=== PATIENT | male | born 1970 | race Caucasian/White ===

== ENCOUNTER → 2016-06-10 | Outpatient (CLI) | payer MEDICARE ==
[~2016-06-10] MED LIST: ZESTRIL5 MG PO
== END ==
LOC: LAB 14:08
DX: I50.22 Chronic systolic (congestive) heart failure (principal); I42.0 Dilated cardiomyopathy; I47.2 Ventricular tachycardia; I48.0 Paroxysmal atrial fibrillation; R00.0 Tachycardia, unspecified; Z79.899 Other long term (current) drug therapy
CPT/HCPCS: 36415; 80076; 84439; 84443; 84481

== ENCOUNTER → 2016-06-28 | Outpatient (CLI) | payer MEDICARE | LOC: HEART 5 09:11 | DX: I47.2 Ventricular tachycardia (principal); Z79.899 Other long term (current) drug therapy; F17.210 Nicotine dependence, cigarettes, uncomplicated; R94.2 Abnormal results of pulmonary function studies | CPT/HCPCS: 94060; 94729 ==

== ENCOUNTER 2020-12-11 05:06 | Inpatient (IN) | payer OTHER ==
[~2020-12-11] VITALS: Ht 190.5 cm; Wt 104.3 kg
[~2020-12-11 05:06] MED LIST changes: +LOPRESSOR50 MG PO
[2020-12-11 05:34] LABS: HEMOGLOBIN 14.1 gm/dl (14.0-17.5); RED BLOOD COUNT 5.02 M/UL (4.20-5.50); WHITE BLOOD COUNT 6.1 K/UL (4.5-11.0)
[2020-12-11 06:38] LABS: BUN/CREATININE RATIO 57 (0-10)
[2020-12-11] MEDS ORDERED: ENTRESTO 24 MG1 EACH PO (10:02)
[2020-12-11] MEDS ORDERED: LOPRESSOR 50 MG50 MG PO (10:02)
[2020-12-11] MEDS ORDERED: LASIX40 MG PO (10:02)
[2020-12-11] MEDS ORDERED: WARFARIN SODIUM4 MG PO ×2 (10:03→11:48)
[2020-12-12 09:50] LABS: RED BLOOD COUNT 4.2 M/UL (4.20-5.50); WHITE BLOOD COUNT 2.8 K/UL (4.5-11.0)
[2020-12-12 10:14] LABS: BUN/CREATININE RATIO 62 (0-10)
--- NOTE | 2020-12-12 14:09 | NUR ---
1410: PATIENT PREVIOUSLY PLACED ON HIGH-FLOW NC AT 15 LPM. UNABLE TO MAINTAIN SPO2 83 - 85%. RESPIRATORY TO PLACE ON AIRVO AND TITRATE TO MAINTAIN SPO2 >90%. DR OLIVEIRA NOTIFIED OF CONSULT WITH REQUEST TO SEE PATIENT PATIENT SOON POSSIBLE.
[2020-12-13 07:11] LABS: HEMOGLOBIN 12.5 gm/dl (14.0-17.5); RED BLOOD COUNT 4.42 M/UL (4.20-5.50)
[2020-12-13 07:14] LABS: WHITE BLOOD COUNT 5.5 K/UL (4.5-11.0)
[2020-12-13 07:39] LABS: BUN/CREATININE RATIO 39 (0-10)
[2020-12-14 07:04] LABS: HEMOGLOBIN 12.2 gm/dl (14.0-17.5); RED BLOOD COUNT 4.31 M/UL (4.20-5.50)
[2020-12-14 07:07] LABS: WHITE BLOOD COUNT 3.8 K/UL (4.5-11.0)
[2020-12-14 07:50] LABS: BUN/CREATININE RATIO 39 (0-10)
[2020-12-15 09:51] LABS: BUN/CREATININE RATIO 41 (0-10)
[2020-12-15 10:08] LABS: HEMOGLOBIN 12.6 gm/dl (14.0-17.5); RED BLOOD COUNT 4.48 M/UL (4.20-5.50)
[2020-12-15 10:09] LABS: WHITE BLOOD COUNT 2.7 K/UL (4.5-11.0)
[2020-12-16 07:12] LABS: HEMOGLOBIN 13.4 gm/dl (14.0-17.5); RED BLOOD COUNT 4.79 M/UL (4.20-5.50)
[2020-12-16 07:22] LABS: WHITE BLOOD COUNT 4.3 K/UL (4.5-11.0)
[2020-12-16 07:43] LABS: BUN/CREATININE RATIO 48 (0-10)
[2020-12-17] MEDS ORDERED: MIRALAX17 GM PO (10:42)
[2020-12-17] MEDS ORDERED: DECADRON6 MG PO (10:42)
[2020-12-17] MEDS ORDERED: SENOKOT-S TABL1 EACH PO (10:42)
[2020-12-17] MEDS ORDERED: COMBIVENT RESPIM4 GM INH (10:42)
[2020-12-17] MEDS ORDERED: AUGMENTIN 875-1 EACH PO (10:42)
--- NOTE | 2020-12-17 12:13 | NUR ---
PTS ROOM AIR OXYGEN SATURATION IS 88 PERCENT
== END 2020-12-17 15:45 | disposition home health service (06) | DRG 871 ==
LOC: ER1 05:06 → M/S 09:51 → CDU 09:51 → M/S 22:30
PROVIDERS: Student in an Organized Health Care Education/Training Program; ADMIT Internal Medicine
PROC: XW033E5 Introduction of Remdesivir Anti-infective into Peripheral Vein, Percutaneous Approach, New Technology Group 5 (ICD-10-PCS; principal; 2020-12-11)
PROC: 3E0333Z Introduction of Anti-inflammatory into Peripheral Vein, Percutaneous Approach (ICD-10-PCS; 2020-12-11)
PROC: 8E0ZXY6 Isolation (ICD-10-PCS; 2020-12-11)
DX: A41.89 Other specified sepsis (principal); U07.1 COVID-19; J12.82 Pneumonia due to coronavirus disease 2019; J96.01 Acute respiratory failure with hypoxia; R65.21 Severe sepsis with septic shock; J96.22 Acute and chronic respiratory failure with hypercapnia; G82.20 Paraplegia, unspecified; I50.32 Chronic diastolic (congestive) heart failure; I42.9 Cardiomyopathy, unspecified; K59.00 Constipation, unspecified; I45.10 Unspecified right bundle-branch block; G71.00 Muscular dystrophy, unspecified; I48.0 Paroxysmal atrial fibrillation; K44.9 Diaphragmatic hernia without obstruction or gangrene; E87.6 Hypokalemia; Z79.01 Long term (current) use of anticoagulants; Z86.718 Personal history of other venous thrombosis and embolism; Z86.711 Personal history of pulmonary embolism; Z95.810 Presence of automatic (implantable) cardiac defibrillator; Z99.3 Dependence on wheelchair; Z95.0 Presence of cardiac pacemaker; Z74.01 Bed confinement status; Z82.3 Family history of stroke; Z90.49 Acquired absence of other specified parts of digestive tract; Z79.82 Long term (current) use of aspirin
CPT/HCPCS: 36415; 36600; 71045; 80053; 82550; 82553; 82803; 82962; 83605; 83735; 83874; 83880; 84100; 84132; 84439; 84443; 84484; 85025; 85379; 85610; 85730; 86140; 87040; 93005; 94640; 94660; 94664; 94760; 94762; 96365; 96366; 96375; 99285; J0456; J0696; J1100; J7030; Q9967

== ENCOUNTER 2020-12-18 18:24 | Inpatient (IN) | payer OTHER ==
[~2020-12-18] VITALS: Ht 188 cm; Wt 93.9 kg
[~2020-12-18 18:24] MED LIST changes: +AUGMENTIN 875-1 EACH PO; +COMBIVENT RESPIM4 GM INH; +DECADRON6 MG PO; +ENTRESTO 24 MG1 EACH PO; +LASIX40 MG PO; +LOPRESSOR 50 MG50 MG PO; +MIRALAX17 GM PO; +SENOKOT-S TABL1 EACH PO; +WARFARIN SODIUM4 MG PO
[2020-12-18 19:37] LABS: HEMOGLOBIN 18.1 gm/dl (14.0-17.5); RED BLOOD COUNT 6.14 M/UL (4.20-5.50); WHITE BLOOD COUNT 14.5 K/UL (4.5-11.0)
[2020-12-18 19:56] LABS: BUN/CREATININE RATIO 59 (0-10)
[2020-12-19 04:05] LABS: HEMOGLOBIN 16.4 gm/dl (14.0-17.5); RED BLOOD COUNT 5.53 M/UL (4.20-5.50); WHITE BLOOD COUNT 11.1 K/UL (4.5-11.0)
[2020-12-19 04:35] LABS: BUN/CREATININE RATIO 75 (0-10)
[2020-12-20 03:44] LABS: HEMOGLOBIN 15.7 gm/dl (14.0-17.5); RED BLOOD COUNT 5.42 M/UL (4.20-5.50); WHITE BLOOD COUNT 14.7 K/UL (4.5-11.0)
[2020-12-20 04:11] LABS: BUN/CREATININE RATIO 67 (0-10)
[2020-12-22 03:36] LABS: HEMOGLOBIN 14.1 gm/dl (14.0-17.5); WHITE BLOOD COUNT 11.3 K/UL (4.5-11.0)
[2020-12-22 03:41] LABS: RED BLOOD COUNT 4.85 M/UL (4.20-5.50)
[2020-12-22 04:11] LABS: BUN/CREATININE RATIO 47 (0-10)
[2020-12-22] MEDS ORDERED: XANAX0.25 MG PO (16:51)
[2020-12-22] MEDS ORDERED: CHRONULAC20 GM/30 M PO (16:51)
== END 2020-12-22 19:00 | disposition home health service (06) | DRG 388 ==
LOC: ER1 18:24 → CDU 19:00 → PROG CARE 21:03
PROVIDERS: Emergency Medicine; ADMIT Internal Medicine Infectious Disease
PROC: 3E0333Z Introduction of Anti-inflammatory into Peripheral Vein, Percutaneous Approach (ICD-10-PCS; principal; 2020-12-18)
PROC: 8E0ZXY6 Isolation (ICD-10-PCS; 2020-12-18)
PROC: 5A09357 Assistance with Respiratory Ventilation, Less than 24 Consecutive Hours, Continuous Positive Airway Pressure (ICD-10-PCS; 2020-12-18)
DX: K56.7 Ileus, unspecified (principal); J96.01 Acute respiratory failure with hypoxia; G82.20 Paraplegia, unspecified; F41.9 Anxiety disorder, unspecified; K44.9 Diaphragmatic hernia without obstruction or gangrene; I48.0 Paroxysmal atrial fibrillation; G71.00 Muscular dystrophy, unspecified; I11.0 Hypertensive heart disease with heart failure; I50.9 Heart failure, unspecified; Z79.01 Long term (current) use of anticoagulants; Z86.16 Personal history of COVID-19; Z86.711 Personal history of pulmonary embolism; Z95.810 Presence of automatic (implantable) cardiac defibrillator; Z74.01 Bed confinement status
CPT/HCPCS: 36415; 36600; 71045; 74018; 80053; 82550; 82553; 82803; 83605; 83735; 83874; 83880; 84484; 85025; 85610; 85730; 87040; 93005; 94640; 94660; 94760; 96374; 99285; J1100

== ENCOUNTER 2021-08-07 05:17 | Emergency (ER) | payer OTHER ==
[~2021-08-07 05:17] MED LIST changes: +CHRONULAC20 GM/30 M PO; +XANAX0.25 MG PO
[2021-08-07 05:59] LABS: HEMOGLOBIN 13.7 gm/dl (14.0-17.5); RED BLOOD COUNT 4.73 M/UL (4.20-5.50)
[2021-08-07 06:18] LABS: BUN/CREATININE RATIO 69 (0-10)
== END 2021-08-07 07:30 | disposition home or self-care (01) ==
LOC: ER1 05:17
PROVIDERS: Family Medicine
DX: I11.0 Hypertensive heart disease with heart failure (principal); I50.20 Unspecified systolic (congestive) heart failure; R00.2 Palpitations; G71.00 Muscular dystrophy, unspecified; Z79.01 Long term (current) use of anticoagulants; Z95.5 Presence of coronary angioplasty implant and graft
CPT/HCPCS: 71045; 80048; 82550; 82553; 83880; 84439; 84443; 84484; 85025; 85610; 93005; 99285

== ENCOUNTER → 2021-11-16 | Outpatient (CLI) | payer OTHER | LOC: HEART 5 10:00 | DX: I50.9 Heart failure, unspecified (principal); I42.0 Dilated cardiomyopathy; E03.9 Hypothyroidism, unspecified; I48.0 Paroxysmal atrial fibrillation; R06.02 Shortness of breath; I27.20 Pulmonary hypertension, unspecified; I07.1 Rheumatic tricuspid insufficiency | CPT/HCPCS: 93306 ==